=== PATIENT | female | born 1970 | race African-American/Black ===

== ENCOUNTER 2019-06-07 16:10 | Emergency (ER) | payer BC ==
[~2019-06-07] VITALS: Ht 170.2 cm; Wt 81.6 kg
[~2019-06-07 16:10] MED LIST: METOPROLOL TART25 MG PO
[2019-06-07] MEDS ORDERED: LOPRESSOR25 MG (17:23)
[2019-06-07] MEDS ORDERED: MOTRIN800 MG (17:23)
--- NOTE | 2019-06-07 18:40 | NUR ---
still no Radiology reading of CXR
--- NOTE | 2019-06-07 19:00 | Diagnostic Imaging Report ---
EXAMINATION: PA and lateral views of the chest. COMPARISON: None CLINICAL HISTORY: Cough DISCUSSION: Lines/tubes: None. Lungs: The lungs are well inflated and clear. There is no evidence of pneumonia or pulmonary edema. Pleura: There is no pleural effusion or pneumothorax. Heart and mediastinum: Cardiomediastinal silhouette is unremarkable. Pulmonary vasculature is normal. Bones and soft tissues: No acute bony abnormalities. IMPRESSION: No acute cardiopulmonary abnormalities. Signed by: Dr. Tesfaye Hill M.D. on 06/07/2019 6:58 PM
== END 2019-06-07 19:09 | disposition home or self-care (01) ==
LOC: ER 16:14
DX: R05 Cough (principal); J20.9 Acute bronchitis, unspecified; I10 Essential (primary) hypertension
CPT/HCPCS: 71046; 99283

== ENCOUNTER → 2020-04-10 | Outpatient (CLI) | payer OTHER ==
[~2020-04-10] MED LIST changes: +COVID-19 VACC, MRNA(MODERNA)/PF 100 MCG/0.5 ML VIAL IM ONE; +LOPRESSOR25 MG; +MOTRIN800 MG
== END ==
LOC: VACCPMC 10:51
DX: Z23 Encounter for immunization (principal); Z20.828 Contact with and (suspected) exposure to other viral communicable diseases

== ENCOUNTER → 2020-05-17 | Outpatient (CLI) | payer OTHER | END | DRG 951 | LOC: VACCPMC 09:15 | DX: Z23 Encounter for immunization (principal); Z20.822 Contact with and (suspected) exposure to COVID-19 | CPT/HCPCS: 0012A; 91301 ==

== ENCOUNTER → 2021-02-08 | Outpatient (CLI) | payer BC, OTHER | LOC: VACCPMC 09:00 | DX: Z23 Encounter for immunization (principal); Z20.822 Contact with and (suspected) exposure to COVID-19 | CPT/HCPCS: 91301 ==